=== PATIENT | female | born 1955 | race Caucasian/White ===

== ENCOUNTER 2017-09-11 18:52 | Emergency (ER) | payer MEDICARE, MEDICAID ==
[~2017-09-11] VITALS: Ht 162.6 cm; Wt 72.6 kg
[2017-09-11 19:15] VITALS: BP 170/110
== END 2017-09-12 00:26 | disposition left against medical advice (07) ==
LOC: EDBD 18:52 → ER 18:52 → EDUNIT# 18:52 → ER 23:00
DX: R07.9 Chest pain, unspecified (principal); R11.0 Nausea; I10 Essential (primary) hypertension; Z88.8 Allergy status to other drugs, medicaments and biological substances; Z53.21 Procedure and treatment not carried out due to patient leaving prior to being seen by health care provider
CPT/HCPCS: 93005